=== PATIENT | female | born 1950 | race Caucasian/White ===

== ENCOUNTER 2017-10-16 12:48 | Emergency (ER) | payer OTHER ==
[~2017-10-16] VITALS: Ht 162.6 cm; Wt 77.0 kg
[~2017-10-16 12:48] MED LIST: CEFTIN500 MG PO; HEPARIN SO5000 UNIT3 IV; HYDROMORPHONE HC2 MG PO; IBUPROFEN400 MG PO; MAXALT10 MG PO; TYLENOL EXTRA500 MG PO; ZOFRAN4 MG PO
[2017-10-16] MEDS ORDERED: FLEXERIL10 MG PO (15:13)
[2017-10-16 15:36] VITALS: BP 126/77
== END 2017-10-16 15:38 | disposition home or self-care (01) ==
LOC: EME 12:48
DX: I80.01 Phlebitis and thrombophlebitis of superficial vessels of right lower extremity (principal); G43.909 Migraine, unspecified, not intractable, without status migrainosus; F41.9 Anxiety disorder, unspecified; Z90.49 Acquired absence of other specified parts of digestive tract; Z86.79 Personal history of other diseases of the circulatory system
CPT/HCPCS: 93971; 99281; 99283